=== PATIENT | female | born 1950 | race Caucasian/White ===

== ENCOUNTER → 2016-08-26 | Outpatient (CLI) | payer OTHER, MEDICARE | LOC: FIMAGING 12:56 → EDSTATUS 12:57 | PROVIDERS: ATTEND Family Medicine | DX: J40 Bronchitis, not specified as acute or chronic (principal); Z87.891 Personal history of nicotine dependence ==

== ENCOUNTER 2017-01-13 05:45 | Inpatient (IN) | payer OTHER, MEDICARE ==
[2017-01-13] MEDS ORDERED: NS IV ONE (06:00)
[2017-01-13] MEDS ORDERED: [UNRECOGNIZED DRUG - OTHER] IV ONE (06:00)
[2017-01-13] MEDS ORDERED: ROPIVACAINE 0.2% 80 MG, EPINEPHrine 0.2 MG, KETOROLAC TROMETHAMINE 30 MG, morphINE 10 M... IU ONE (06:00)
[2017-01-13] MEDS ORDERED: TRANEXAMIC ACID 1,000 MG in NS 100 ML IV ONE (06:00)
[2017-01-13] MEDS ORDERED: FAMOTIDINE 20 MG TAB PO ONE (06:15)
[2017-01-13] MEDS ORDERED: ceFAZolin 2 GM/SWFI 2 GM/20 ML SYR IVP ONE (06:15)
[2017-01-13] MEDS ORDERED: DEXAMETHASONE 4 MG/ML VIAL IVP ONE (06:15)
[2017-01-13] MEDS ORDERED: ACETAMINOPHEN 325 MG TAB PO ONE (06:15)
[2017-01-13] MEDS ORDERED: LIDOCAINE 1% 2 ML INJ ONE (06:52)
[2017-01-13] MEDS ORDERED: ceFAZolin 1 GM/5 ML SYR ONE (06:53)
[2017-01-13] MEDS ORDERED: MIDAZOLAM 2 MG/2 ML VIAL IVP ONE (07:04)
--- NOTE | 2017-01-13 07:08 | PDANEPAE ---
ANE History of Present Illness left knee osteoarthritis ANE Past Medical History - Cardiovascular History Hx Hypertension: No Hx Arrhythmias: No Hx Chest Pain: No Hx Coronary Artery / Peripheral Vascular Disease: No Hx CHF / Valvular Disease: No Hx Palpitations: No - Pulmonary History Hx COPD: No Hx Asthma/Reactive Airway Disease: No Hx Recent Upper Respiratory Infection: No Hx Oxygen in Use at Home: No Hx Sleep Apnea: No Sleep Apnea Screening Result - Last Documented: Negative Pulmonary History Comment: BRONCHATALECTASIS - Neurologic History Hx Cerebrovascular Accident: No Hx Seizures: No Hx Dementia: No - Endocrine History Hx Diabetes: No - Renal History Hx Renal Disorders: No - Liver History Hx Hepatic Disorders: No - Neurological & Psychiatric Hx Hx Neurological and Psychiatric Disorders: Yes Neurological / Psychiatric History Comment: 1989 [facility], VERY EMOTIONAL - Cancer History Hx Cancer: No - Congenital Disorder History Hx Congenital Disorders: No - GI History Hx Gastrointestinal Disorders: Yes Gastrointestinal History Comment: REFLUX - Other Health History Other Health History: NONE - Chronic Pain History Chronic Pain: Yes (ALL JOINTS) - Surgical History Prior Surgeries: COLONOSCOPY 2012. R KNEE REPLACEMENT NOV 2015 ANE Review of Systems Review of Systems: - Exercise capacity METS (RN): 4 METS ANE Patient History - Allergies Allergies/Adverse Reactions: levofloxacin [Levofloxacin] Allergy (Severe, Verified 12/17/16 20:50) Tendinitis Penicillins Allergy (Severe, Verified 12/17/16 20:50) Hives amoxicillin [From Augmentin] Allergy (Verified 12/17/16 20:50) Vomiting clavulanic acid [From Augmentin] Allergy (Verified 12/17/16 20:50) Vomiting tramadol Allergy (Verified 12/17/16 20:50) Other-Enter Comments vancomycin Allergy (Verified 12/17/16 20:50) fluorquinolone class Allergy (Uncoded 12/17/16 20:50) - Home Medications Home Medications: Diazepam [Valium 5 MG (*)] 5 mg PO HS PRN 12/17/16 [Last Taken Unknown] Herbals/Supplements -Info Only 1 ea PO DAILY 12/17/16 [Last Taken Unknown] Promethazine HCl/Codeine [Prometh-Codein 6.25-10 mg/5 ml] 5 ml PO Q6H PRN [Last Taken Unknown] - NPO status NPO Since - Liquids (Date): 01/12/17 NPO Since - Liquids (Time): 03:45 NPO Since - Solids (Date): 01/12/17 NPO Since - Solids (Time): 20:00 - Smoking Hx Smoking Status: Former smoker - Family Anes Hx Family Hx Anesthesia Complications: NONE ANE Labs/Vital Signs - Vital Signs Blood Pressure: 136/87 Heart Rate: 89 Respiratory Rate: 18 O2 Sat (%): 90 Height: 168.91 cm Weight: 67.132 kg ANE Physical Exam - Airway Neck exam: FROM Mallampati Score: Class 1 Mouth exam: normal dental/mouth exam - Pulmonary Pulmonary: no respiratory distress - Cardiovascular Cardiovascular: regular rate and rhythym - ASA Status ASA Status: II ANE Anesthesia Plan Anesthesia Plan: spinal Regional Anesthesia: adductor canal FNB Total IV Anesthesia: Yes
[2017-01-13] MEDS ORDERED: DEXAMETHASONE 4 MG/ML VIAL ONE (07:16)
[2017-01-13] MEDS ORDERED: ONDANSETRON 4 MG/2 ML VIAL ONE (07:16)
[2017-01-13] MEDS ORDERED: PROPOFOL/EMULSION 500 MG/50 ML BOTTLE IV ONE (07:16)
[2017-01-13] MEDS ORDERED: fentaNYL 100 MCG/2 ML INJ ONE (07:17)
--- NOTE | 2017-01-13 07:19 | PDHPUP ---
History & Physical Update H&P update statement: This history and physical update is based on an assessment of the patient which was completed after admission or registration (within 24 hours), but prior to the surgery/procedure.
[2017-01-13] MEDS ORDERED: LR 1,000 ML IV ONE (07:20)
[2017-01-13] MEDS ORDERED: LIDOCAINE 1% 2 ML INJ ID PRN (07:20)
[2017-01-13] MEDS ORDERED: NALOXONE HCL 0.4 MG/ML INJ IVP PRN (08:21)
[2017-01-13] MEDS ORDERED: HYDROmorphONE/DILAUDID 1 MG/ML INJ IVP PRN (08:21)
[2017-01-13] MEDS ORDERED: ONDANSETRON 4 MG/2 ML VIAL IVP PRN ×2 (08:21→09:32)
[2017-01-13] MEDS ORDERED: PROMETHAZINE HCL 25 MG/ML INJ IVP PRN ×2 (08:21→09:32)
[2017-01-13] MEDS ORDERED: fentaNYL 100 MCG/2 ML INJ IVP PRN (08:21)
[2017-01-13] MEDS ORDERED: PROPOFOL 200 MG/20 ML VIAL ONE (08:56)
[2017-01-13] MEDS ORDERED: DIPHENOXYLATE/ATROPINE LOMOTIL 1 TAB PO PRN (09:32)
[2017-01-13] MEDS ORDERED: ONDANSETRON DISINTEGRATING 4 MG TAB PO PRN (09:32)
[2017-01-13] MEDS ORDERED: METOCLOPRAMIDE 10 MG/2 ML VIAL IVP PRN (09:32)
[2017-01-13] MEDS ORDERED: BISACODYL 10 MG SUPP PR PRN (09:32)
[2017-01-13] MEDS ORDERED: PROMETHAZINE HCL 25 MG SUPPR PR PRN (09:32)
[2017-01-13] MEDS ORDERED: LACTULOSE 20 GM/30 ML UDCUP PO PRN (09:32)
[2017-01-13] MEDS ORDERED: diphenhydrAMINE 25 MG CAP PO PRN (09:32)
[2017-01-13] MEDS ORDERED: TEMAZEPAM 15 MG CAP PO PRN (09:32)
[2017-01-13] MEDS ORDERED: MAGNESIUM HYDROXIDE 30 ML UDCUP PO PRN (09:32)
[2017-01-13] MEDS ORDERED: POLYETHYLENE GLYCOL 3350 17 GM PKT PO PRN (09:32)
--- NOTE | 2017-01-13 09:38 | POSTANESTH ---
Post Anesthetic Evaluation Cardiovascular Status: Normal, Stable Respiratory Status: Normal, Stable Level of Consciousness/Mental Status: Can Participate in Eval Pain Control: Adequate, Prn Tx Ordered Nausea/Vomiting Control: Adequate, Prn Tx Ordered Complications Possibly Related to Anesthesia: None Noted
--- NOTE | 2017-01-13 09:47 | POSTOPPROG ---
Post Op Note Date of Operation: 01/13/17 Surgeon: Tej Shelton Almond Blancher Operator: Roma Espinoza Anesthesia: Epidural Pre-op Diagnosis: Left knee osteoarthritis/rheumatoid arthritis Post-op Diagnosis: Left knee osteoarthritis/RA Procedure: Left total knee replacement Inf/Abcess present in the surg proc area at time of surgery?: No Depth: Deep Incisional (Fascial) EBL: Minimal Complications: None
[2017-01-13] MEDS ORDERED: HYDROmorphONE/DILAUDID 1 MG/ML INJ ONE (09:48)
--- NOTE | 2017-01-13 10:11 | GOP ---
[f rep st] OPERATIVE REPORT DATE OF OPERATION: 01/13/2017 SURGEON: Tej Shelton MD SUPERINTENDENT HOUSE: Roma Espinoza PA-C. ANESTHESIA: Spinal. PREOPERATIVE DIAGNOSIS: Left knee osteoarthritis. POSTOPERATIVE DIAGNOSIS: Left knee osteoarthritis. PROCEDURE PERFORMED: Left total knee arthroplasty. FINDINGS: DESCRIPTION OF PROCEDURE: Patient taken to the operating room, administered spinal anesthesia, and p laced in the supine position. The left lower extremity was prepped and draped in normal sterile fash ion. Esmarch exsanguination was performed, followed by elevation of thigh cuff to 275 mmHg pressure. Midline incision was made through dermal subcutaneous tissues. Medial parapatellar incision was ma de through the retinaculum. The periosteal tissue was reflected off the anterior aspect of the tibia . The anterior fat pad and medial and lateral meniscal structures were partially excised. Distal fe mur was exposed. The distal femoral guide was placed on the distal femur, and 2 drill lugs were dril led down to subchondral bone of the medial and lateral femoral condyles. These were used to index ou r distal femoral cut. The distal femoral cutting guide was placed on the femur. The cut was made wi th the oscillating saw. The distal femoral cut did have a step-off. The reciprocating saw was used to create the step-off. The medial and lateral condylar cuts were then made. The tibia was exposed. Retractors were put in position. The anterior cruciate ligament remnant was excised. The articula r surface of the medial and lateral tibial plateaus was denuded of its cartilage using ring curette. The tibial guide was placed on the tibia and secured with 3 pins. Our tibial cut was made with the oscillating saw. This wafer of bone was then removed. Our flexion/extension gaps were then assessed and felt to be appropriate. The distal femoral cutting block was then placed into our 2 guide holes in the distal femur. Our flexion gap was assessed with the block in place. We then secured the blo ck in the appropriate alignment. The AP cuts were then made followed by the anterior chamfer cut. T he 2 drill lugs were drilled for the distal femur. The posterior chamfer cutting blocks were placed on the distal femur. The 2 posterior chamfer cuts were then made with the oscillating saw. Our tria l femur was put in position. Osteophytes were removed from around it, on both the posterior condylar segments and medially and laterally. The notch was cleared up of any osteophytes, also. The tibial tray was then put in position. Knee was put through flexion and extension arc of motion. The tibia l line was marked with a marking pen. The trials were brought out. A tibial tray was then pinned in to position. The metaphysis was drilled with the metaphyseal drill, followed by the impaction of the pin of the impaction device into the proximal tibia. The patella was prepared. We made an 8 mm cut with the oscillating saw and cutting guide. Three drill lugs were drilled in the patella . A size 32 patella fit appropriately. No-thumbs test was performed with our trial implants in plac e, and the patella tracked well. There was no lift-off on the tibia. Trial components were removed. The real implants were opened. Cement mixing commenced. All surfaces were thoroughly lavaged and dried. The tibia was cemented into place, followed by the femur, followed by the patella. All exces s cement was removed. No-thumbs test was again performed with our trial inserts A lateral and 6 mm m edial. Excellent alignment was obtained with good motion. We went with the 6 mm medial insert, whic h was impacted into position, followed by the A lateral insert which was impacted into position. Tho rough lavage was performed. The tourniquet was let down. Small bleeders were cauterized. The retin aculum was reapproximated with a #1 Vicryl suture, followed by closure of the subcutaneous tissue wit h 2-0 Vicryl suture, followed by closure of the dermis with john. A sterile compressive dressing was applied, followed by JUAN hose and pneumatic compression stockings. The patient tolerated procedu re well and was transferred back to Recovery in stable condition. There were no operative complicati ons. COMPLICATIONS: None. /[id number]/MODL
[2017-01-13] MEDS: ACETAMINOPHEN 325 MG TAB PO SCH ×3 (11:27→23:26)
[2017-01-13] MEDS: oxyCODONE IR 5 MG TAB PO PRN ×3 (12:54→21:08)
[2017-01-13] MEDS: ceFAZolin 2 GM/DEXTROSE 100 ML IV SCH ×2 (14:43→23:27)
[2017-01-13] MEDS: SENNOSIDES/DOCUSATE SODIUM TAB PO SCH (21:07)
[2017-01-13] MEDS: ASPIRIN 325 MG TAB PO SCH (21:07)
[2017-01-13] MEDS: DIAZEPAM 5 MG TAB PO PRN (21:08)
[2017-01-13] MEDS: FAMOTIDINE 20 MG TAB PO SCH (21:09)
[2017-01-13] MEDS: LR 1,000 ML IV SCH (21:22)
[2017-01-14] MEDS: ACETAMINOPHEN 325 MG TAB PO SCH ×3 (05:19→16:23)
[2017-01-14] MEDS ORDERED: NS BOLUS 500 ML (Wide open) IV ONE (05:30)
--- NOTE | 2017-01-14 07:32 | SOAPPROG ---
SOAP Progress Note Assessment/Plan: Assessment: S/P Left total knee arthroplasty Plan: WBAT LLE Activities as tolerated JUAN/s/SCD's BLE DVT prophylaxis - Aspirin PT/OT Ice to left knee/elevation left knee Pain medicine as needed Ortho Stable Subjective: 66 year old female POD#1 from a left total knee arthroplasty. She states that overall her knee is feeling well and her pain is controlled. She has a history of a right total knee arthroplasty. Objective: Vital Signs Temp Pulse Resp BP Pulse Ox 36.9 C 65 14 87/52 L 95 01/14/17 04:00 01/14/17 04:00 01/14/17 04:00 01/14/17 04:00 01/14/17 04:00 Laboratory Results 01/14/17 04:30 01/13/17 01/14/17 01/15/17 05:59 05:59 05:59 Intake Total 2420 500 Output Total 1300 Balance 1120 500 Physical exam of the left knee: dressings clean, dry and intact. Patient able to do a straight leg lift. Normal sensation to light touch in the LLE. Distal pulse present in the LLE. ICD10 Worksheet Patient Problems: Problems Problem Status Onset Chronic Disease Mgmt/Transitional Care Acute Rheumatoid arthritis involving knee Acute
[2017-01-14] MEDS: oxyCODONE IR 5 MG TAB PO PRN ×3 (07:38→20:28)
[2017-01-14] MEDS: LR 1,000 ML IV SCH ×2 (07:39→16:23)
[2017-01-14] MEDS ORDERED: Herbals/Supplements -Info Only PO SCH (09:00)
[2017-01-14] MEDS: CYCLOBENZAPRINE 10 MG TAB PO PRN ×2 (09:48→16:23)
[2017-01-14] MEDS: FAMOTIDINE 20 MG TAB PO SCH ×2 (09:48→20:28)
[2017-01-14] MEDS: ASPIRIN 325 MG TAB PO SCH (09:48)
[2017-01-14] MEDS: SENNOSIDES/DOCUSATE SODIUM TAB PO SCH ×2 (09:48→20:28)
[2017-01-14] MEDS: predniSONE 5 MG TAB PO SCH (09:48)
--- NOTE | 2017-01-14 16:13 | ASMTCMCOM ---
CM Note CM Note Notes: Case management network support engineer Colten Bravo spoke extensively with pt prior to her surgery about services/needs. Pt has no resources for private pay, does not want SNF d/c. Pt has had [facility] in past and requests their services again. International Marketing Intern Jaspal French met w pt yesterday. OT rec SNF, PT rec HHC vs. SNF. Pt wants to stay in hospital until she feels safe to go home. Pt address needed for HHC. CM to follow. Date Signed: 01/14/2017 04:13 PM Electronically Signed By:MORGAN Rodriguez
--- NOTE | 2017-01-14 16:13 | ASMTCMCOM ---
CM Note CM Note Notes: Case management help desk support Colten Bravo spoke extensively with pt prior to her surgery about services/needs. Pt has no resources for private pay, does not want SNF d/c. Pt has had [facility] in past and requests their services again. Payroll Director Jaspal French met w pt yesterday. OT rec SNF, PT rec HHC vs. SNF. Pt wants to stay in hospital until she feels safe to go home. Pt address needed for HHC. CM to follow. Date Signed: 01/14/2017 04:13 PM Electronically Signed By:MORGAN Rodriguez
--- NOTE | 2017-01-14 16:13 | ASMTCMCOM ---
CM Note CM Note Notes: Case management account support analyst Colten Bravo spoke extensively with pt prior to her surgery about services/needs. Pt has no resources for private pay, does not want SNF d/c. Pt has had [facility] in past and requests their services again. General Labor Jaspal French met w pt yesterday. OT rec SNF, PT rec HHC vs. SNF. Pt wants to stay in hospital until she feels safe to go home. Pt address needed for HHC. CM to follow. Date Signed: 01/14/2017 04:13 PM Electronically Signed By:MORGAN Rodriguez
[2017-01-15] MEDS: ACETAMINOPHEN 325 MG TAB PO SCH ×4 (00:08→18:45)
[2017-01-15] MEDS: oxyCODONE IR 5 MG TAB PO PRN ×7 (00:09→22:21)
--- NOTE | 2017-01-15 08:57 | SOAPPROG ---
SOAP Progress Note Assessment/Plan: Assessment: POD#2 Left total knee arthroplasty Plan: WBAT LLE Activities as tolerated JUAN/s/SCD's BLE DVT prophylaxis - Aspirin PT/OT Ice to left knee/elevation left knee Pain medicine as needed Ortho Stable, Okay to discharge from Orthopedic stand point. Subjective: 66 year old female who is post op day 2 from a left total knee arthroplasty. She states her knee was more painful last night, however is feeling better today. Objective: Vital Signs Temp Pulse Resp BP Pulse Ox 36.4 C 71 16 130/73 H 96 01/15/17 08:00 01/15/17 08:00 01/15/17 08:00 01/15/17 08:00 01/15/17 08:00 Laboratory Results 01/15/17 05:12 01/14/17 01/15/17 01/16/17 05:59 05:59 05:59 Intake Total 2420 2150 Output Total 1300 2600 Balance 1120 -450 Physical exam of the left knee: dressing changed today, clean, dry and intact. Incision healing nicely there is no erythema, no active drainage. Patient able to do a straight leg lift. Normal sensation to light touch in the LLE. Distal pulse present in the LLE. ICD10 Worksheet Patient Problems: Problems Problem Status Onset Chronic Disease Mgmt/Transitional Care Acute Rheumatoid arthritis involving knee Acute
[2017-01-15] MEDS: predniSONE 5 MG TAB PO SCH (09:09)
[2017-01-15] MEDS: FAMOTIDINE 20 MG TAB PO SCH ×2 (09:09→21:21)
[2017-01-15] MEDS: ASPIRIN 325 MG TAB PO SCH (09:09)
[2017-01-15] MEDS: SENNOSIDES/DOCUSATE SODIUM TAB PO SCH ×2 (09:20→23:00)
--- NOTE | 2017-01-15 11:02 | ASMTCMCOM ---
CM Note CM Note Notes: Met with patient regarding discharge plan of care. Patient is still requesting to discharge on Wednesday with [facility]. Spoke with Carolyne at [facility], they are able to accept patient on Wednesday, SOC Wednesday, 01/17. Patient is requesting [facility] PT, Renetta and RN, Rosa. Patient is concerned about her recovery and has requested a [facility] RN as well. Carolyne at [facility] aware of patient's requests. Patient's physical address is: [address] [place] [phone]--WZKD aware. Patient is not interested in private help, states she has neighbors who will check on her when she returns home. Current Discharge Plan: Home with [facility]. Case Management will continue to follow. Date Signed: 01/15/2017 11:01 AM Electronically Signed By:Laverne French RN
--- NOTE | 2017-01-15 11:02 | ASMTCMCOM ---
CM Note CM Note Notes: Met with patient regarding discharge plan of care. Patient is still requesting to discharge on Wednesday with [facility]. Spoke with Carolyne at [facility], they are able to accept patient on Wednesday, SOC Wednesday, 01/17. Patient is requesting [facility] PT, Renetta and RN, Rosa. Patient is concerned about her recovery and has requested a [facility] RN as well. Carolyne at [facility] aware of patient's requests. Patient's physical address is: [address] [place] [id number]RKTW aware. Patient is not interested in private help, states she has neighbors who will check on her when she returns home. Current Discharge Plan: Home with [facility]. Case Management will continue to follow. Date Signed: 01/15/2017 11:01 AM Electronically Signed By:Laverne French RN
--- NOTE | 2017-01-15 11:02 | ASMTCMCOM ---
CM Note CM Note Notes: Met with patient regarding discharge plan of care. Patient is still requesting to discharge on Wednesday with [facility]. Spoke with Carolyne at [facility], they are able to accept patient on Wednesday, SOC Wednesday, 01/17. Patient is requesting [facility] PT, Renetta and RN, Rosa. Patient is concerned about her recovery and has requested a [facility] RN as well. Carolyne at [facility] aware of patient's requests. Patient's physical address is: [address] [place] [phone]--EFFK aware. Patient is not interested in private help, states she has neighbors who will check on her when she returns home. Current Discharge Plan: Home with [facility]. Case Management will continue to follow. Date Signed: 01/15/2017 11:01 AM Electronically Signed By:Laverne French RN
[2017-01-15] MEDS: DIAZEPAM 5 MG TAB PO PRN (22:21)
[2017-01-16] MEDS: oxyCODONE IR 5 MG TAB PO PRN ×4 (03:00→15:45)
[2017-01-16] MEDS: ACETAMINOPHEN 325 MG TAB PO SCH ×4 (03:00→12:42)
[2017-01-16 07:59] VITALS: PULSE 81; RESP 18; TEMP 98.4; O2SAT 96
[2017-01-16 08:14] VITALS: BP 141/90
[2017-01-16] MEDS: ASPIRIN 325 MG TAB PO SCH (08:37)
[2017-01-16] MEDS: predniSONE 5 MG TAB PO SCH (08:40)
[2017-01-16] MEDS: CYCLOBENZAPRINE 10 MG TAB PO PRN (08:40)
[2017-01-16] MEDS: FAMOTIDINE 20 MG TAB PO SCH (08:40)
[2017-01-16] MEDS: SENNOSIDES/DOCUSATE SODIUM TAB PO SCH (08:43)
--- NOTE | 2017-01-16 12:42 | SOAPPROG ---
SOAP Progress Note Assessment/Plan: Assessment: POD#3 Left total knee arthroplasty Plan: WBAT LLE Activities as tolerated JUAN/s/SCD's BLE DVT prophylaxis - Aspirin PT/OT Ice to left knee/elevation left knee Pain medicine as needed Ortho Stable, Okay for discharge today Subjective: Pt is post op day #3 from a left total knee arthroplasty. She is doing well and ready for discharge. Objective: Vital Signs Temp Pulse Resp BP Pulse Ox 36.9 C 81 18 141/90 H 96 01/16/17 07:58 01/16/17 07:58 01/16/17 07:58 01/16/17 07:58 01/16/17 07:58 Laboratory Results 01/15/17 05:12 01/15/17 01/16/17 01/17/17 05:59 05:59 05:59 Intake Total 2150 480 Output Total 2600 Balance -450 480 Physical exam of the left knee: dressing changed today, clean, dry and intact. Incision healing nicely there is no erythema, no active drainage. Patient able to do a straight leg lift. Normal sensation to light touch in the LLE. Distal pulse present in the LLE. ICD10 Worksheet Patient Problems: Problems Problem Status Onset Chronic Disease Mgmt/Transitional Care Acute Rheumatoid arthritis involving knee Acute
--- NOTE | 2017-01-16 14:34 | PDIAF ---
- Diagnosis Diagnosis: left total knee arthroplasty Code Status: Full Code - Medication Management Discharge Medications: Medications to Continue on Transfer celeCOXIB [Celebrex (*)] 200 mg PO BID #0 cap 11/29/15 [Last Taken 1 Week Ago ~ 01/06/17] Herbals/Supplements -Info Only 1 ea PO DAILY 12/17/16 [Last Taken 1 Week Ago ~] Promethazine HCl/Codeine [Prometh-Codein 6.25-10 mg/5 ml] 5 ml PO Q6H PRN [Last Taken Unknown] Aspirin [Aspirin 325 mg (*)] 325 mg PO DAILY tab 01/15/17 [Last Taken Unknown] oxyCODONE IR [Oxycodone Ir (*)] 5 - 10 mg PO Q4HRS PRN #50 tab 01/15/17 [Last Taken Unknown] predniSONE 5 mg PO DAILY tab 01/15/17 [Last Taken Unknown] Discharge Medications: Refer to the Discharge Home Medication list for PRN reason. - Orders Services needed: Home Care, Registered Nurse, Physical Therapy Home Care Face to Face: I certify that this patient was under my care and that I had the required [id number] encounter meeting the encounter requirements on the discharge day. My findings support the fact that the patient is homebound as defined in Home Care Face to Face Continued: CMS Chapter 7 Medicare Benefits Manual 30.1.1 , The condition of the patient is such that there exists a normal inability to leave home and consequently, leaving home would require a considerable and taxing effort. Diet Recommendation: no restrictions on diet Diet Texture: Regular Texture Diet - Follow Up Care Current Providers and Referrals: Barbara Powell MD [Primary Care Provider] - Tej Shelton MD [Medical Doctor] - follow up in 2 weeks (Follow up with Dr. Shelton in 10-14 days post op)
--- NOTE | 2017-01-16 14:34 | ASMTCMCOM ---
CM Note CM Note Notes: Pt will dc home today and will be followed by [facility] for RN,PT services; notified [facility]. Met w/pt and she is in agreement w/dc poc. She has friend picking her up today. D/W RN. Date Signed: 01/16/2017 02:33 PM Electronically Signed By:Jackelyn Eaton RN
--- NOTE | 2017-01-16 14:34 | ASMTCMCOM ---
CM Note CM Note Notes: Pt will dc home today and will be followed by [facility] for RN,PT services; notified [facility]. Met w/pt and she is in agreement w/dc poc. She has friend picking her up today. D/W RN. Date Signed: 01/16/2017 02:33 PM Electronically Signed By:Jackelyn Eaton RN
--- NOTE | 2017-01-16 14:34 | ASMTCMCOM ---
CM Note CM Note Notes: Pt will dc home today and will be followed by [facility] for RN,PT services; notified [facility]. Met w/pt and she is in agreement w/dc poc. She has friend picking her up today. D/W RN. Date Signed: 01/16/2017 02:33 PM Electronically Signed By:Jackelyn Eaton RN
--- NOTE | 2017-01-17 16:27 | ASDISCHSUM ---
Discharge Information Plan Status:Home with Home Health Medically Cleared to Leave:01/16/2017 Discharge Date:01/16/2017 04:19 PM D/C Disposition:Home Health Service [facility] D/C Disposition:Home, Routine, Self-Care Projected Discharge Date:01/16/2017 11:00 AM Transportation at D/C:Family Discharge Delay Reason: Follow-Up Date:01/16/2017 11:00 AM Discharge Slot: Final Diagnosis: Placement Information Referral Type:*Home Health Care Services Referral ID:[id number] Provider Name:[facility] [address] [place] [address] Address 2: City:[place] Selection Factors: State:[place] Patient Contact Information Contact Name:AIME Relationship:Friend Address: City: [facility] Phone: [facility]/Zip Code: Email: Financial Information Financial Class: Primary Plan Desc:MEDICARE INPATIENT Primary Plan Number:[id number] Secondary Plan Desc:AARP/MDR SUPPLEMENT Secondary Plan Number:[id number] Assessment Information CM Tool And Machine Maintainer Assessment CM Note CM Note Notes: Spoke with patient about her upcoming surgery on 01/13/17. This patient had a TKA in November of 2015. Patient is adamant that she does not want the same anesthesiologist as last time. Case Management spoke with Sonia Schmidt, Patient Director Of Cardiology, about anesthesiology concerns. Sonia did inform Adair Soria of concern and requested he call patient to discuss options. Patient Rep will continue to follow patients request for a new Anesthesiologist. [facility] and continues to express her concerns about "discharging too soon." Case Management explained that the Surgeon will make the final decision on discharge when he/she feels it is safe. Case Management also provided resources on private home health cares, explaining they are private pay only. Patient likely unable to schedule private duty due to financial issues. Patient has used [facility] in the past and is requesting again, specifically TARA Jackson and Rosa RN. Will follow-up with [facility] when patient is on floor post-surgery. Patient also has concerns about her surgery coverage. Case Management encouraged patient to call her insurance for details on coverage and also provided contact # for Financial Services. Polystyrene Bead Molder agreed to follow-up with patient when she is admitted on 01/13, Patient Rep will also follow-up. Date Signed: 01/05/2017 11:33 AM Electronically Signed By:Margy Bravo [facility] CM Progress Note CM Note CM Note Notes: Case management academic support coordinator Colten Bravo spoke extensively with pt prior to her surgery about services/needs. Pt has no resources for private pay, does not want SNF d/c. Pt has had [facility] in past and requests their services again. Polystyrene Bead Molder Jaspal French met w pt yesterday. OT rec SNF, PT rec HHC vs. SNF. Pt wants to stay in hospital until she feels safe to go home. Pt address needed for [facility]. CM to follow. Date Signed: 01/14/2017 04:13 PM Electronically Signed By:MORGAN Rodriguez [facility] CM Progress Note CM Note CM Note Notes: Met with patient regarding discharge plan of care. Patient is still requesting to discharge on Wednesday with [facility]. Spoke with Carolyne at [facility], they are able to accept patient on Wednesday, SOC Wednesday, 01/17. Patient is requesting [facility] PT, Renetta and RN, Rosa. Patient is concerned about her recovery and has requested a [facility] RN as well. Carolyne at [facility] aware of patient's requests. Patient's physical address is: [address] [place] [address]--GDUA aware. Patient is not interested in private help, states she has neighbors who will check on her when she returns home. Current Discharge Plan: Home with [facility]. Case Management will continue to follow. Date Signed: 01/15/2017 11:01 AM Electronically Signed By:Laverne French RN [facility] CM Progress Note CM Note CM Note Notes: Pt will dc home today and will be followed by [facility] for RN,PT services; notified [facility]. Met w/pt and she is in agreement w/dc poc. She has friend picking her up today. D/W RN. Date Signed: 01/16/2017 02:33 PM Electronically Signed By:Jackelyn Eaton RN Intervention Information
--- NOTE | 2017-01-17 16:27 | ASDISCHSUM ---
Discharge Information Plan Status:Home with Home Health Medically Cleared to Leave:01/16/2017 Discharge Date:01/16/2017 04:19 PM D/C Disposition:Home Health Service [facility] D/C Disposition:Home, Routine, Self-Care Projected Discharge Date:01/16/2017 11:00 AM Transportation at D/C:Family Discharge Delay Reason: Follow-Up Date:01/16/2017 11:00 AM Discharge Slot: Final Diagnosis: Placement Information Referral Type:*Home Health Care Services Referral ID:[id number] Provider Name:[facility] Care Address 1[address] [place] [address] Address 2: City:[place] Selection Factors: State:[place] Patient Contact Information Contact Name:AIME Relationship:Friend Address: City: [facility] Phone: [facility]/Zip Code: Email: Financial Information Financial Class: Primary Plan Desc:MEDICARE INPATIENT Primary Plan Number:[id number] Secondary Plan Desc:AARP/MDR SUPPLEMENT Secondary Plan Number:[id number] Assessment Information CM Horticulture/Floriculture Teacher Assessment CM Note CM Note Notes: Spoke with patient about her upcoming surgery on 01/13/17. This patient had a TKA in November of 2015. Patient is adamant that she does not want the same anesthesiologist as last time. Case Management spoke with Sonia Schmidt, Patient Clerical Assistant, about anesthesiology concerns. Sonia did inform Adair Soria of concern and requested he call patient to discuss options. Patient Rep will continue to follow patients request for a new Anesthesiologist. Patient lives in the [facility] independently and continues to express her concerns about "discharging too soon." Case Management explained that the Surgeon will make the final decision on discharge when he/she feels it is safe. Case Management also provided resources on private home health cares, explaining they are private pay only. Patient likely unable to schedule private duty due to financial issues. Patient has used [facility] in the past and is requesting again, specifically TARA Jackson and Rosa RN. Will follow-up with [facility] when patient is on floor post-surgery. Patient also has concerns about her surgery coverage. Case Management encouraged patient to call her insurance for details on coverage and also provided contact # for Financial Services. School Clerk agreed to follow-up with patient when she is admitted on 01/13, Patient Rep will also follow-up. Date Signed: 01/05/2017 11:33 AM Electronically Signed By:Margy Bravo [facility] CM Progress Note CM Note CM Note Notes: Case management child support case officer Colten Bravo spoke extensively with pt prior to her surgery about services/needs. Pt has no resources for private pay, does not want SNF d/c. Pt has had [facility] in past and requests their services again. School Clerk Jaspal French met w pt yesterday. OT rec SNF, PT rec HHC vs. SNF. Pt wants to stay in hospital until she feels safe to go home. Pt address needed for [facility]. CM to follow. Date Signed: 01/14/2017 04:13 PM Electronically Signed By:MORGAN Rodriguez [facility] CM Progress Note CM Note CM Note Notes: Met with patient regarding discharge plan of care. Patient is still requesting to discharge on Wednesday with [facility]. Spoke with Carolyne at [facility], they are able to accept patient on Wednesday, SOC Wednesday, 01/17. Patient is requesting [facility] PT, Renetta and RN, Rosa. Patient is concerned about her recovery and has requested a [facility] RN as well. Carolyne at [facility] aware of patient's requests. Patient's physical address is: [address] [place] [address]--[place] aware. Patient is not interested in private help, states she has neighbors who will check on her when she returns home. Current Discharge Plan: Home with [facility]. Case Management will continue to follow. Date Signed: 01/15/2017 11:01 AM Electronically Signed By:Laverne French RN [facility] CM Progress Note CM Note CM Note Notes: Pt will dc home today and will be followed by [facility] for RN,PT services; notified [facility]. Met w/pt and she is in agreement w/dc poc. She has friend picking her up today. D/W RN. Date Signed: 01/16/2017 02:33 PM Electronically Signed By:Jackelyn Eaton RN Intervention Information
--- NOTE | 2017-01-17 16:27 | ASDISCHSUM ---
Discharge Information Plan Status:Home with Home Health Medically Cleared to Leave:01/16/2017 Discharge Date:01/16/2017 04:19 PM D/C Disposition:Home Health Service [facility] D/C Disposition:Home, Routine, Self-Care Projected Discharge Date:01/16/2017 11:00 AM Transportation at D/C:Family Discharge Delay Reason: Follow-Up Date:01/16/2017 11:00 AM Discharge Slot: Final Diagnosis: Placement Information Referral Type:*Home Health Care Services Referral ID:[id number] Provider Name:[facility] Care Address 1[address] [place] [address] Address 2: City:[place] Selection Factors: State:[place] Patient Contact Information Contact Name:AIME Relationship:Friend Address: City: [facility] Phone: [facility]/Zip Code: Email: Financial Information Financial Class: Primary Plan Desc:MEDICARE INPATIENT Primary Plan Number:[id number] Secondary Plan Desc:AARP/MDR SUPPLEMENT Secondary Plan Number:[id number] Assessment Information CM Radiology Physician Assessment CM Note CM Note Notes: Spoke with patient about her upcoming surgery on 01/13/17. This patient had a TKA in November of 2015. Patient is adamant that she does not want the same anesthesiologist as last time. Case Management spoke with Sonia Schmidt, Patient Deicer Inspector Electric, about anesthesiology concerns. Sonia did inform Adair Soria of concern and requested he call patient to discuss options. Patient Rep will continue to follow patients request for a new Anesthesiologist. Patient lives in the [facility] independently and continues to express her concerns about "discharging too soon." Case Management explained that the Surgeon will make the final decision on discharge when he/she feels it is safe. Case Management also provided resources on private home health cares, explaining they are private pay only. Patient likely unable to schedule private duty due to financial issues. Patient has used [facility] in the past and is requesting again, specifically TARA Jackson and Rosa RN. Will follow-up with [facility] when patient is on floor post-surgery. Patient also has concerns about her surgery coverage. Case Management encouraged patient to call her insurance for details on coverage and also provided contact # for Financial Services. Honeycomb Decapper agreed to follow-up with patient when she is admitted on 01/13, Patient Rep will also follow-up. Date Signed: 01/05/2017 11:33 AM Electronically Signed By:Margy Bravo [facility] CM Progress Note CM Note CM Note Notes: Case management technical support 1 software engineer Colten Bravo spoke extensively with pt prior to her surgery about services/needs. Pt has no resources for private pay, does not want SNF d/c. Pt has had [facility] in past and requests their services again. Honeycomb Decapper Jaspal French met w pt yesterday. OT rec SNF, PT rec HHC vs. SNF. Pt wants to stay in hospital until she feels safe to go home. Pt address needed for [facility]. CM to follow. Date Signed: 01/14/2017 04:13 PM Electronically Signed By:MORGAN Rodriguez [facility] CM Progress Note CM Note CM Note Notes: Met with patient regarding discharge plan of care. Patient is still requesting to discharge on Wednesday with [facility]. Spoke with Carolyne at [facility], they are able to accept patient on Wednesday, SOC Wednesday, 01/17. Patient is requesting [facility] PT, Renetta and RN, Rosa. Patient is concerned about her recovery and has requested a [facility] RN as well. Carolyne at [facility] aware of patient's requests. Patient's physical address is: [address] [place] [address]--[place] aware. Patient is not interested in private help, states she has neighbors who will check on her when she returns home. Current Discharge Plan: Home with [facility]. Case Management will continue to follow. Date Signed: 01/15/2017 11:01 AM Electronically Signed By:Laverne French RN [facility] CM Progress Note CM Note CM Note Notes: Pt will dc home today and will be followed by [facility] for RN,PT services; notified [facility]. Met w/pt and she is in agreement w/dc poc. She has friend picking her up today. D/W RN. Date Signed: 01/16/2017 02:33 PM Electronically Signed By:Jackelyn Eaton RN Intervention Information
== END 2017-01-16 16:19 | disposition home or self-care (01) | DRG 470 ==
LOC: F3N 05:45
PROVIDERS: ADMIT Orthopaedic Surgery Sports Medicine; ATTEND Orthopaedic Surgery Sports Medicine
PROC: 0SRD0J9 Replacement of Left Knee Joint with Synthetic Substitute, Cemented, Open Approach (ICD-10-PCS; principal; 2017-01-13 07:15)
DX: M17.12 Unilateral primary osteoarthritis, left knee (principal); M06.9 Rheumatoid arthritis, unspecified; Z96.651 Presence of right artificial knee joint; J47.9 Bronchiectasis, uncomplicated; Z72.0 Tobacco use; Z79.52 Long term (current) use of systemic steroids
CPT/HCPCS: 97110-GP; 97116-GP; 97161-GP; 97165-GO; 97530-GP; 97535-GO; C1713; G8978-GP-CJ; G8979-GP-CI; G8980-GP-CI; G8987-GO-CK; G8988-GO-CI; G8989-GO-CJ; J0171; J0690; J1100; J1170; J1885; J2250; J2405; J2704; J2795; J3010

== ENCOUNTER → 2017-03-01 | Outpatient (CLI) | payer OTHER, MEDICARE ==
[~2017-03-01] MED LIST: IOPAMIDOL (ISOVUE-300) 100 ML BTL ONE
== END ==
LOC: FIMAGING 10:47
PROVIDERS: ATTEND Internal Medicine Infectious Disease
DX: J47.9 Bronchiectasis, uncomplicated (principal); J98.11 Atelectasis
CPT/HCPCS: 71260; Q9967

== ENCOUNTER 2017-03-05 12:50 | Day surgery (SDC) | payer OTHER, MEDICARE ==
[2017-03-05] MEDS ORDERED: LIDOCAINE 1% 300 MG/30 ML SDV ONE (13:12)
[2017-03-05] MEDS ORDERED: LIDOCAINE HCL 4% TOPICAL SOLN 50ML ONE (13:12)
[2017-03-05] MEDS ORDERED: LIDOCAINE 2% JELLY 5 ML TUBE ONE (13:13)
[2017-03-05] MEDS ORDERED: MIDAZOLAM 2 MG/2 ML VIAL ONE (13:14)
[2017-03-05] MEDS ORDERED: fentaNYL 100 MCG/2 ML INJ ONE (13:14)
[2017-03-05] MEDS ORDERED: ALBUTEROL 3 ML DEYVIAL ONE (13:18)
[2017-03-05] MEDS ORDERED: BENZOCAINE UNIT DOSE SPRAY HURRICAINE MM ONE (13:19)
--- NOTE | 2017-03-05 14:19 | PDPROPOC ---
Sedation Plan of Care Sedation Plan of Care: vital signs stable, mental status noted, patient educated of risks, benefits, alternatives, patient can tolerate sedation ASA Classification: ASA 2 Planned drugs: fentanyl, midazolam Mallampati Score: Class 1 Mallampati Reference Image: Patient passed 3-3-2 rule?: Yes
[2017-03-05] MEDS ORDERED: ALBUTEROL 3 ML DEYVIAL IH ONE (14:20)
[2017-03-05] MEDS ORDERED: MIDAZOLAM 2 MG/2 ML VIAL IVP ONE (14:38)
[2017-03-05] MEDS ORDERED: fentaNYL 100 MCG/2 ML INJ IVP ONE (14:38)
--- NOTE | 2017-03-05 15:16 | PDGENHP ---
History & Physical Chief Complaint: Chronic cough, associated with green/yellow mucus History of Present Illness: The patient is a pleasant 66-year-old who is known to me from the office previously. She has a history of increasing cough and mucus over the last year or so, probably longer. This is associated with bronchiectasis in the right middle lobe and lingula with lesser changes in the lower lobes. Atelectasis and tree-in-bud infiltrates are present. Bronchoscopy is requested by Dr. Mcintosh. Pertinent Past, Social, Family History: Rheumatoid arthritis, on prednisone at 8 mg per day and Celebrex. Relevant Physical Exam: Room air saturation is 92%. Respiratory rate is 16. She is afebrile. Blood pressure 160/90. Intermittent cough is present. HEENT is within normal limits. The lungs revealed good breath sounds and excursions. There are minimal nonspecific rales at the bases. There are no significant rhonchi, no wheezes. The heart is regular. A soft systolic murmur is present. The abdomen and the rest examination is normal. Cardiorespiratory Assessment: See above
[2017-03-05 15:28] VITALS: BP 121/76; PULSE 76; RESP 18; TEMP 97.7; O2SAT 92
--- NOTE | 2017-03-06 03:15 | GPN ---
[f rep st] PROCEDURE NOTE PROCEDURE PERFORMED: Bronchoscopy. INDICATION: Chronic cough and mucus associated with bronchiectasis and inflammatory appearing nodula rity and atelectasis on CAT scan. She does have a history of rheumatoid arthritis. She is mildly im munosuppressed with prednisone at 8 mg per day PROCEDURE NOTE: The procedure was done in the endoscopy suite. Informed consent was obtained from t he patient. Appropriate time-out was performed. A small amount of Hurricaine spray and 4 cc of 4% l idocaine was applied to the posterior oropharyngeal tissues. N95 masks were worn throughout the proc edure. Fiberoptic bronchoscope was passed via a bite block orally into the larynx. Laryngeal structures wer e normal. The vocal cords moved normally with cough and respiration. There was a small amount of mu cus on the posterior aspect of the vocal cords, coughed up from the trachea. The bronchoscope was th en advanced into the trachea and into the lower tracheobronchial tree bilaterally. There was a small amount of mucus scattered throughout the trachea and lower tracheobronchial tree bilaterally. This was not excessive. It appeared to be somewhat yellow/green in color. There were no mucus plugs. Th e mucosa appeared normal. There were no endobronchial lesions, no evidence of extrinsic compression. Bronchoalveolar lavage was performed from the right middle lobe, lingula, right lower lobe and left lower lobe. Samples were combined. There were no complications. Oxygen saturations on supplemental oxygen and vital signs remained norm al throughout the procedure. The patient tolerated the procedure well. Samples were sent for cultures including aerobic organisms, fungal organisms, and mycobacterial organ isms. Cytologies were also sent. Because of her prednisone therapy a Pneumocystis stain was request ed. ASSESSMENT: Normal endobronchial anatomy. A relatively small amount of mucus, somewhat purulent, wa s seen bilaterally. /[id number]/MODL
== END 2017-03-05 16:42 | disposition home or self-care (01) ==
LOC: FSGY 12:50
PROVIDERS: ATTEND Internal Medicine Pulmonary Disease
PROC: 0B978ZX Drainage of Left Main Bronchus, Via Natural or Artificial Opening Endoscopic, Diagnostic (ICD-10-PCS; principal; 2017-03-05 14:00)
PROC: 0B938ZX Drainage of Right Main Bronchus, Via Natural or Artificial Opening Endoscopic, Diagnostic (ICD-10-PCS; principal; 2017-03-05 14:00)
DX: R05 Cough (principal)
CPT/HCPCS: J0171; J2250; J3010

== ENCOUNTER → 2017-08-31 | Outpatient (CLI) | payer OTHER, MEDICARE | LOC: BMCIMAGING 13:47 | PROVIDERS: ATTEND Family Medicine | DX: R05 Cough (principal); J98.11 Atelectasis; R91.8 Other nonspecific abnormal finding of lung field; Z87.891 Personal history of nicotine dependence ==

== ENCOUNTER → 2018-07-21 | Outpatient (CLI) | payer OTHER, MEDICARE | LOC: FIMAGING 14:11 | PROVIDERS: ATTEND Otolaryngology | DX: J01.01 Acute recurrent maxillary sinusitis (principal) ==